=== PATIENT | male | born 1945 | race Caucasian/White ===

== ENCOUNTER → 2017-08-29 11:02 | Outpatient (CLI) | payer MEDICARE, SELFPAY ==
[2017-08-29 13:02] LABS: Absolute Lymphocyte Count 2.02 X10^3/ul (0.83-4.51); Absolute Neutrophil Count 6.2 X10^3/uL (2.0-7.7); Basophil# 0.02 X10^3/uL; Basophil% 0.2 % (0-1); Eosinophil# 0.27 X10^3/uL; Eosinophils% 2.9 % (0-5); Hematocrit 43.6 % (40-54); Hemoglobin 14.6 g/dl (13.0-16.5); Lymphocyte # 2.02 X10^3/ul (4.0); Lymphocyte % 21.7 % (19-41); Mean Corp Hgb Conc 33.5 g/gl (32-36); Mean Corpuscular Hgb 30.6 pg (27.0-32.0); Mean Corpuscular Volume 91.4 fL (80-94); Mean Platelet Vol. 11.2 fl (6.2-12.0); Monocyte# 0.75 X10^3/uL; Neutrophil # 6.23 X10^3/uL (2.7-7.7); Neutrophil % 66.9 % (47-70); Platelet Count 316 K/mm3 (150-450); RBC Distribution Width CV 13.1 % (11.6-14.6); RBC Distribution Width SD 43.5 fl (35.1-43.9); Red Blood Count 4.77 M/mm3 (4.6-6.2); White Blood Count 9.3 K/mm3 (4.4-11.0)
[2017-08-29 13:06] LABS: POSITIVE COUNT NO; POSITIVE DIFFERENTIAL NO; POSITIVE MORPHOLOGY NO
[2017-08-29 13:35] LABS: AST(SGOT) 39 U/L (15-37); Alanine Aminotransfer ALT/SGPT 64 U/L (16-61); Albumin, Serum 3.7 g/dL (3.2-5.0); Alkaline Phosphatase 53 U/L (45-117); Anion Gap 10 (5-15); BUN 10 mg/dL (7-18); BUN/Creat Ratio 12.5 RATIO (10-20); Calcium,Total 8.6 mg/dL (8.5-10.1); Chloride 102 mmol/L (98-107); EST Glomerular Filtration Rate 100 mL/min (>60); Est Glom Filt Rate - Afr Amer 121 mL/min (>60); Globulin 3.7 g/dL (2.2-4.2); Glucose 101 mg/dL (74-106); Potassium 3.4 mmol/L (3.5-5.1); Protein, Total 7.4 g/dL (6.4-8.2); Sodium Level 137 mmol/L (136-145)
== END ==
PROVIDERS: Family Provider Family Medicine; PCP Family Medicine; Visit Provider Family Medicine
DX: Z01.818 Encounter for other preprocedural examination (principal)
CPT/HCPCS: 36415; 80053; 85025

== ENCOUNTER 2017-09-24 08:03 | Inpatient (IN) | payer MEDICARE, SELFPAY ==
[2017-09-11 10:11] VITALS: BP 137/70; PULSE 69; RESP 16; TEMP 36.3; O2SAT 96; BMI 33.7
[2017-09-24] VITALS (9 sets, daily range): BP systolic 119–144; BP diastolic 64–83; PULSE 58–101; RESP 12–18; TEMP 36.4–36.8; O2SAT 93–97; BMI 33.7
[2017-09-24] MEDS: Celecoxib 200 MG Capsule 400 MG PO (08:39)
[2017-09-24] MEDS: Acetaminophen 500 MG Tablet 1000 MG PO ×3 (08:39→21:54)
[2017-09-24] MEDS: oxyCODONE HCl Cr 10 MG Tablet PO (08:39)
[2017-09-24] MEDS: Cefazolin 2 GM in 0.9% Normal Saline 100 ML IV (09:48)
--- NOTE | 2017-09-24 11:41 | PCM.OPRPT ---
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 Left knee pain status post unicompartmental knee arthroplasty. Osteoarthritis left knee Post-Operative Diagnosis: Same Surgery/Procedure Performed:: Removal of the unicompartmental knee arthroplasty and revision to total knee arthroplasty left Description of Surgical Findings:: Severe osteoarthritis lateral and patellofemoral compartments. Eburnation of bone and periarticular osteophytes. Loose femoral and tibial components helper coordinator: Blayne Mullins Type of Anesthesia:: Spinal Anesthesiologist: Brenda Moe Special Medications: TXA Specimen's removed: Bone and soft tissue and unicompartmental knee arthroplasty Estimated Blood Loss (mL): 100 Fluids Replaced: See anesthesia report Description of Procedure: Implants: Lety triathlon size 5 posterior stabilized cemented femur, 6 tibia with 10 mm medial augment and 50 x 12 mm stem and 40 mm patella all cemented with Simplex with posterior stabilized size 9 articulating surface Indications: Walter is a 72-year-old male that previously had a unicompartmental knee arthroplasty. He was doing quite well with this and developed severe pain in his knee. Preoperative bone scan did reveal loosening of the components. X-rays also reveal osteoarthritic changes noted in the lateral compartment as well as the patellofemoral joint. He has elected to have this revised to a total knee arthroplasty Procedure description: The patient was greeted in the preoperative area. The left knee was then marked with a surgical marker. Patient was then taken to or [address]. They were administered a dose of antibiotics as well as tranexamic acid. Once adequate anesthesia was obtained and airway was secured to placed in supine position on the operating room table. A well-padded tourniquet was placed on the affected extremity. Leg was then prepped and draped in the usual sterile fashion from the knee down. Ioban was used on the skin. Surgical timeout was then performed and confirmed with all present. Six-inch Esmarch was used to examine the limb and tourniquet was then inflated to 250 mmHg. A longitudinal incision was then planned and carried out in the anterior aspect of the knee incorporating his previous anterior incision. The dissection was then carried the length of the incision the extensor mechanism was identified. Standard medial parapatellar arthrotomy was then performed revealing severe eburnation of bone and periarticular osteophytes, this also revealed a unicompartmental knee arthroplasty in the medial aspect of the knee. There is complete loss of cartilage especially in the patellofemoral joint. Anterior fat pad was removed for visualization purposes and the anterior medial aspect of the tibia was skeletonized for exposure to the knee. The knee was then flexed the patella was inverted. Opening reamer was then used in the femur approximately 1 cm anterior to the attachment of the PCL. The intramedullary valgus wand was then placed in the femur set at 5? of valgus. The distal femoral cutting jig was then applied to the femur with anticipated resection of approximately 10 mm. This was then made with a oscillating saw. This cut could not completely be made because of the femoral component. At this time flexible osteotomes were then used to break up the bone cement interface and the femoral component was removed with essentially no bone loss. The sizing guide was then placed referencing off the posterior condyles and also reference off the epicondylar axis. I also reference off Whitesides line in order to accommodate for the fact that the medial posterior condyle was absent from the previous surgery. This was measured and the appropriate size 4-in-1 cutting jig was then applied to the distal femur. Anterior posterior cuts were made followed by the anterior and posterior chamfer cuts. These bony pieces and fragments were removed and placed on the back table. Posterior retractor was then utilized and the tibia was subluxed anteriorly. Extramedullary tibial alignment jig was then applied to the tibia referencing off the medial one third of the tibial tubercle the anterior tibial spine the middle aspect of the tibiotalar joint. Also reference off patient's [place] slope. The tibial cutting jig was then pinned with anticipated resection of 9 mm off of the lateral tibial condyle. Assessment of the cut medially would be through the tibial component therefore I did remove the cutting jig leaving the pins and flexible osteotomes were then used to remove the tibial component. Again very little bone loss was noted as the tibial component came off quite easily. The cutting jig was then reapplied. This cut was made with the oscillating saw. Because of the previous tibial component I anticipate placing a medial wedge. There is approximately 7 mm of absent bone because of the component therefore I did do a resurfacing cut of the medial aspect of the tibia with anticipation of a 10 mm augment. This was also done through the cutting jig. Once this was complete a laminar retail wireless sales consultant was utilized in both medial lateral meniscus were removed and a posterior capsular osteophytes were also removed. Posterior capsule release was performed in the posterior capsule as well as the geniculate arteries are treated with the aqua Jenae. The tibia was incised and the appropriate sized tibial tray was then pinned with a 10 mm augment on the medial aspect.. The femoral box cutting jig was then applied to the femur and the box was prepared removing a portion of the intercondylar notch. The femoral trial was then placed and the knee was trialed. Full flexion-extension were easily achieved. The knee seemed to balance quite nicely. Any remaining osteophytes were removed at this time. Once this was complete the patella was everted and the [employer] patella reaming device was then utilized the patella was then placed in the appropriate jig and reamer was then used to remove approximately 9 mm of the undersurface of the patella. A soft tissue remaining was in the way was removed and patella trial was then placed listed maintain excellent tracking using the no thumbs technique. The tibial tray at this point was drilled in order to accommodate the 12 mm stem there was also punched to accommodate the fins of the final implant. At this point cement was mixed on the back table. The trial components were removed and the knee was copiously irrigated. Did use a cocktail of injection for postoperative pain control. The final components were then cemented in the standard fashion and excess cement was removed with cement removal tools and patellar clamp is placed in the patella. As the cement had cured in full extension tourniquet was deflated and hemostasis was perfect with Bovie cautery as well as the aqua Manus. Needle is once again trialed with different size polyethylenes to ensure the full range of motion was achieved as well as excellent balancing ligamentously was achieved. At this point the knee was copiously irrigated. Final implant was then inserted locking mechanism was engaged and confirmed to be locked. The arthrotomy was then closed with #1 Vicryl aggravate type fashion interrupted. Subcutaneous tissue was closed with 0 Vicryl and surgical jaimie were placed in the skin. A occlusive silver impregnated dressing was then applied followed by well-padded sterile dressing secured with an Clarence wrap. The patient was taken to the PACU in stable condition. No complications known at this time. Postoperatively we will maintain standard total knee postoperative protocol. The use of the physician high school assistant principal was integral during this procedure. They assisted with positioning placement of the tourniquet retracting closure and placement of the dressing. The procedure would have been much more difficult without their expertise and assistance - Complications none known - Admit VTE Documentation VTE Present on Admission: Yes VTE Mechan Device Prophylaxis: SCD's, Thigh High SAM Michaele VTE Pharm Prophylaxis ordered?: Yes
[2017-09-24] MEDS: Famotidine 20 MG Tablet 40 MG PO (12:14)
[2017-09-24] MEDS: Mag Hydrox/Al Hydrox/Simeth 30 ML UDC PO (12:15)
--- NOTE | 2017-09-24 12:15 | RAD_ITS ---
STUDY: X-RAY - LEFT KNEE REASON FOR EXAM: Male, 72 years old. Postop from replacement surgery TECHNIQUE: 2 view(s) of the knee. COMPARISON: None. FINDINGS: Patient is status post replacement of left knee joint. Components demonstrate anatomic alignment. No plain film evidence of postoperative complication. Normal postoperative soft tissue swelling and subcutaneous emphysema. RAD/Knee 1 or 2 Views IMPRESSION: Replaced left knee joint demonstrates anatomic alignment. No plain film evidence of postoperative complication Electronically Signed: Rahul Morton MD at 12:32 EDT , Service support ,
[2017-09-24] MEDS: Lactated Ringers 1,000 ML 125 ML IV ×2 (12:51→19:17)
[2017-09-24] MEDS: oxyCODONE 5 MG Tablet PO (14:40)
[2017-09-24] MEDS: Cefazolin 1 GM/50 ML BAG IV (17:34)
[2017-09-24] MEDS: Aspirin 325 MG Tablet PO (17:35)
[2017-09-24] MEDS: Celecoxib 200 MG Capsule PO (21:54)
[2017-09-24] MEDS: morphine SR 15 MG Tablet PO (21:54)
[2017-09-24] MEDS: Senna/Docusate Sodium 1 Tablet 2 TABLET PO (21:54)
[2017-09-25] MEDS: Cefazolin 1 GM/50 ML BAG IV (01:50)
[2017-09-25 01:54] VITALS: BP 124/75; PULSE 73; RESP 16; TEMP 37.1; O2SAT 96
[2017-09-25] MEDS: Acetaminophen 500 MG Tablet 1000 MG PO ×3 (06:09→21:00)
[2017-09-25] MEDS: 0.9% NaCl Peripheral Flush Adult/Peds IV (06:55)
--- NOTE | 2017-09-25 07:43 | PCM.PN.ORT ---
Subjective: Walter is doing fairly well. He has pain as expected. This is currently controlled with the current regimen of pain medication. He is currently sitting at bedside waiting for breakfast. Objective: Patient is neurovascularly intact. Dressing is clean and dry. There is no calf pain elicited. - Physical Exam Vital Signs Temp Pulse Resp BP Pulse Ox 98.7 F 73 16 124/75 H 96 09/25/17 01:54 09/25/17 01:54 09/25/17 01:54 09/25/17 01:54 09/25/17 01:54 Oxygen Delivery Method Room Air Weight: 235 lb Body Mass Index (BMI) 33.7 Intake and Output for Last 24 Hours 09/23/17 09/24/17 09/25/17 23:59 23:59 23:59 Intake Total 3183 / 3183 631 / 631 Output Total 700 / 700 200 / 200 Balance 2483 / 2483 431 / 431 Medical Necessity - Tobacco Use Smoking Status: Former smoker Assessment/Plan Postop day 1 removal of unicompartmental knee arthroplasty with revision to total knee replacement left knee Walter is doing fairly well. Given the extensive nature of the surgery I would recommend the patient work with therapy today continue with pain control and anticoagulation. Anticipate patient being discharged home tomorrow
[2017-09-25 08:35] VITALS: BP 133/72; PULSE 79; RESP 16; TEMP 36.8; O2SAT 95
[2017-09-25] MEDS: oxyCODONE 5 MG Tablet PO ×2 (08:40→13:39)
[2017-09-25] MEDS: Celecoxib 200 MG Capsule PO ×2 (08:42→21:00)
[2017-09-25] MEDS: Aspirin 325 MG Tablet PO ×2 (08:42→17:10)
[2017-09-25] MEDS: Senna/Docusate Sodium 1 Tablet 2 TABLET PO ×2 (08:43→21:00)
[2017-09-25] MEDS: Losartan Potassium 100 MG Tablet PO (08:43)
[2017-09-25] MEDS: hydroCHLOROthiazide 25 MG Tablet PO (08:43)
[2017-09-25] MEDS: Famotidine 20 MG Tablet PO (08:43)
[2017-09-25] MEDS: morphine SR 15 MG Tablet PO ×2 (10:37→21:00)
--- NOTE | 2017-09-25 11:56 | CASEMGMT ---
RN OLY Face to Face with patient for initial transition planning/care coordination assessment. RN CM introduced self and role at [facility]. Patient lying in bed, alert and oriented, family at bedside. Patient willing to participate in assessment and is able to answer all questions appropriately. Care providers, pharmacy, and demographics verified. See link attached. Patient wishes to discharge home and is setup with [facility] for outpatient therapy and family providing transportation. Patient states he has no further needs or concerns at this time. CM to follow for discharge planning needs that may arise. Disposition Plan: Patient to discharge home with outpatient therapy, family support, and follow-up plans in place.
[2017-09-25 14:50] VITALS: BP 130/70; PULSE 84; RESP 16; TEMP 36.8; O2SAT 95
[2017-09-25 19:48] VITALS: BP 130/68; PULSE 83; RESP 16; TEMP 36.4; O2SAT 95
[2017-09-26 04:54] VITALS: BP 139/76; PULSE 79; RESP 18; TEMP 37.1; O2SAT 98
[2017-09-26] MEDS: oxyCODONE 5 MG Tablet PO (04:58)
[2017-09-26] MEDS: Acetaminophen 500 MG Tablet 1000 MG PO ×2 (04:58→13:17)
[2017-09-26 07:54] VITALS: BP 128/67; PULSE 79; RESP 16; TEMP 36.8; O2SAT 95
[2017-09-26] MEDS: Aspirin 325 MG Tablet PO (08:03)
[2017-09-26] MEDS: Famotidine 20 MG Tablet PO (08:04)
[2017-09-26] MEDS: Senna/Docusate Sodium 1 Tablet 2 TABLET PO (08:04)
[2017-09-26] MEDS: Celecoxib 200 MG Capsule PO (08:04)
[2017-09-26 10:04] VITALS: BP 136/65; PULSE 77
[2017-09-26] MEDS: Losartan Potassium 100 MG Tablet PO (10:05)
[2017-09-26] MEDS: hydroCHLOROthiazide 25 MG Tablet PO (10:05)
[2017-09-26] MEDS: morphine SR 15 MG Tablet PO (10:05)
--- NOTE | 2017-09-26 11:55 | PCM.DC.ORTHO ---
Discharge Diet: No Restrictions Discharge Activity: May Not Drive, May Shower - if occlusive dressing is sealed Ice area for (Minutes): 20 Weight Bearing Status: Weight bearing as tolerated - with walker Keep extremity elevated above heart level: Left Leg Call your doctor if your incision/area has: Continuous Slow Oozing, Sudden Increased Bleeding, Increased Pain/ Swelling, Increased Redness, Foul Smelling Discharge Call your doctor if you observe: Fever of 101 or Higher, Coldness, Increased Pain, Numbness or Tingling, Change in Color Remove Dressing in (days):: 7 - open to air if no drainage Cleanse incision/area with: Soap & Water - if no drainage after dressing removed Allergies/Adverse Reactions: Allergies atorvastatin calcium [From Lipitor] Adverse Reaction (Verified 09/11/17 09:54) Pain in joints rosuvastatin [From Crestor] Adverse Reaction (Verified 09/11/17 09:54) Pain in joints Medications to take at Discharge Losartan/Hydrochlorothiazide [Hyzaar 100-25 Tablet] 1 tab PO DAILY 04/07/13 Ascorbic Acid [Vitamin C] 500 mg PO DAILY 09/11/17 Psyllium Husk (with Sugar) [Metamucil Powder] 575 gm PO BID 09/11/17 Acetaminophen [Tylenol] 1,000 mg PO Q8 tablet 09/26/17 Aspirin 325 mg PO BIDCM tablet 09/26/17 Oxycodone [Oxyir] 5 - 10 mg PO Q4H PRN PRN 7 Days #56 tablet 09/26/17 morphine SR tablet [Ms Contin] 15 mg PO BID 7 Days #14 tablet 09/26/17 The following prescriptions were given: Oxycodone [Oxyir] 5 - 10 mg PO Q4H PRN PRN 7 Days #56 tablet PRN Reason: Mod-Severe Pain (4-10/10) morphine SR tablet [Ms Contin] 15 mg PO BID 7 Days #14 tablet Please Follow Up With: Blayne Mullins PA-C When: as scheduled
[2017-09-26 11:59] VITALS: BP 132/77; PULSE 70; RESP 18; TEMP 36.9; O2SAT 97
--- NOTE | 2017-09-26 12:07 | PCM.DC.BLA ---
Discharge Summary Date of Admission: 09/24/17 Date of Discharge: 09/26/17 Summary: Walter had a removal of his unicompartmental knee arthroplasty and conversion to a total knee replacement on September 24, 2017. Once he was stabilized in the recovery room he was then transferred to the medical surgical floor where he was monitored per protocol. He was placed on both chemical and mechanical DVT prophylaxis. He was also placed on both oral and IV narcotics for pain control. He was evaluated by physical therapy and occupational therapy in order to maximize his functional dependence. Patient did quite well and on September 18, 2017 is being discharged to home. Please see discharge instructions.
== END 2017-09-26 14:24 | disposition home or self-care (01) | DRG 468 ==
LOC: MS3 08:04
PROVIDERS: Admitting Provider Orthopaedic Surgery; Family Provider Family Medicine; PCP Family Medicine; Visit Provider Orthopaedic Surgery
PROC: 0SPD0JZ Removal of Synthetic Substitute from Left Knee Joint, Open Approach (ICD-10-PCS; CPT 27447; principal; 2017-09-24 09:50)
DX: T84.033A Mechanical loosening of internal left knee prosthetic joint, initial encounter (principal); I10 Essential (primary) hypertension; M17.12 Unilateral primary osteoarthritis, left knee; Z96.652 Presence of left artificial knee joint; Z87.891 Personal history of nicotine dependence; Z23 Encounter for immunization
CPT/HCPCS: 73560; 87081; 97110; 97116; 97162; 97165; 97530; 97535; J7120; 90686; A4216

== ENCOUNTER → 2017-11-22 08:35 | Outpatient (CLI) | payer MEDICARE, SELFPAY ==
[2017-11-22 10:14] LABS: Absolute Lymphocyte Count 2.38 X10^3/ul (0.83-4.51); Absolute Neutrophil Count 6.2 X10^3/uL (2.0-7.7); Basophil# 0.03 X10^3/uL; Basophil% 0.3 % (0-1); Eosinophil# 0.35 X10^3/uL; Eosinophils% 3.6 % (0-5); Hematocrit 40.3 % (40-54); Hemoglobin 13.4 g/dl (13.0-16.5); Lymphocyte # 2.38 X10^3/ul (4.0); Lymphocyte % 24.4 % (19-41); Mean Corp Hgb Conc 33.3 g/gl (32-36); Mean Corpuscular Hgb 30.4 pg (27.0-32.0); Mean Corpuscular Volume 91.4 fL (80-94); Mean Platelet Vol. 10.9 fl (6.2-12.0); Monocyte# 0.77 X10^3/uL; Monocyte% 7.9 % (0-10); Neutrophil % 63.6 % (47-70); Platelet Count 347 K/mm3 (150-450); RBC Distribution Width CV 13.1 % (11.6-14.6); RBC Distribution Width SD 43.4 fl (35.1-43.9); Red Blood Count 4.41 M/mm3 (4.6-6.2); White Blood Count 9.8 K/mm3 (4.4-11.0)
[2017-11-22 10:15] LABS: POSITIVE COUNT NO; POSITIVE DIFFERENTIAL NO; POSITIVE MORPHOLOGY NO
[2017-11-22 10:49] LABS: AST(SGOT) 24 U/L (15-37); Alanine Aminotransfer ALT/SGPT 40 U/L (16-61); Albumin, Serum 3.6 g/dL (3.2-5.0); Alkaline Phosphatase 62 U/L (45-117); Anion Gap 8 (5-15); BUN 13 mg/dL (7-18); BUN/Creat Ratio 16.2 RATIO (10-20); Calcium,Total 8.8 mg/dL (8.5-10.1); Chloride 103 mmol/L (98-107); EST Glomerular Filtration Rate 100 mL/min (>60); Est Glom Filt Rate - Afr Amer 121 mL/min (>60); Globulin 3.7 g/dL (2.2-4.2); Glucose 109 mg/dL (74-106); Potassium 3.6 mmol/L (3.5-5.1); Protein, Total 7.3 g/dL (6.4-8.2); Sodium Level 137 mmol/L (136-145); Thyroid Stim Hormone (TSH) 2.15 uIU/mL (0.358-3.74)
== END ==
PROVIDERS: Family Provider Family Medicine; PCP Family Medicine; Visit Provider Family Medicine
DX: R53.83 Other fatigue (principal)
CPT/HCPCS: 36415; 80053; 84443; 85025

== ENCOUNTER → 2017-12-19 09:11 | Outpatient (CLI) | payer MEDICARE, SELFPAY ==
--- NOTE | 2017-12-19 09:15 | STEWCON_ITS ---
Reason For Study: Fatigue Stress Results Protocol: Reese Protocol Maximum Predicted HR: 146 bpm Target HR: 124 bpm% Max imum Predicted HR: 87 % DurationHeart Rate Stage (mm:ss) (bpm) BPCom ment Baseline 65 140/82 Definity 0.4 ML Used; No Chest Pain Reese Protocol Stage I 3:00 11 0 178/80No Chest Pain; Mild Dyspnea Reese Protocol Stage II 3:00 12 6 194/80No Chest Pain; Moderate Dyspnea Reese Protocol Stage III 0:01 12 7 / No Chest Pain; Moderate Dyspnea Recovery 84 146/78 No Chest Pain Stress Duration: 6:01 mm:ss Maximum Stress HR: 127 bpmM ETS: 7 Baseline Echocardiogram Findings The estimated ejection fraction is 65 %. Stress Echo Wall motion Data Resting WMIntermediate WMStress WM Resting Wall Motion Wall Motion Stress No regional wall motion No regional wall motion abnormalities noted. abnormalities noted. EKG Data Normal intervals are noted. The baseline ECG displays normal sinus rhythm. The patient exercised according to the regular Reese protocol for a total duration of 6:01. The maximum heart rate attained was 133 beats per minute. This was 91% of maximum predicted heart rate. The patient exercised into stage 3 of the Reese protocol. During stress, there were no ST or T wave changes noted to suggest ischemia. No clinical angina was noted. Interpretation Summary The estimated ejection fraction is 65 %. Normal, adequate, treadmill echocardiogram. Negative for ischemia by EKG and echocardiographic anterior. No anginal symptoms noted. Rare PAC noted. Appropriate hypertensive blood pressure response to exercise. Final LVEF of 75%. Test terminated due to dyspnea. Ordering Physician: Misa Cabrera Referring Physician: Ramirez Wu MD Performed By: Jenna Angulo RDCS, RVT
== END ==
PROVIDERS: Family Provider Family Medicine; PCP Family Medicine; Visit Provider Family Medicine
DX: R53.83 Other fatigue (principal)
CPT/HCPCS: 93017; 93350; Q9957; A4216; C8928

== ENCOUNTER → 2019-04-15 | Outpatient (CLI) | payer MEDICARE, SELFPAY ==
[2017-09-24 13:25] VITALS: BMI 33.7
[2019-04-15 12:47] LABS: BUN 13 mg/dL (7-18); BUN/Creat Ratio 13.8 RATIO (10-20); Calcium,Total 8.8 mg/dL (8.5-10.1); Creatinine, Serum 0.94 mg/dL (0.70-1.30); EST Glomerular Filtration Rate 83 mL/min (>60); Est Glom Filt Rate - Afr Amer 100 mL/min (>60); Glucose 189 mg/dL (74-106); Potassium 3.6 mmol/L (3.5-5.1); Sodium Level 134 mmol/L (136-145)
[2019-04-15 12:48] LABS: Anion Gap 6 (5-15); Chloride 102 mmol/L (98-107)
== END | disposition home or self-care (01) ==
LOC: MFPLAB 10:08
PROVIDERS: Family Provider Family Medicine; PCP Family Medicine; Referring Provider Family Medicine; Visit Provider Family Medicine
DX: I10 Essential (primary) hypertension (principal)
CPT/HCPCS: 36415; 80048

== ENCOUNTER → 2019-11-26 10:35 | Outpatient (CLI) | payer MEDICARE, SELFPAY ==
[2017-09-24 13:25] VITALS: BMI 33.7
[2019-11-26 13:13] LABS: Anion Gap 6 (5-15); BUN 12 mg/dL (7-18); Calcium,Total 8.9 mg/dL (8.5-10.1); Chloride 104 mmol/L (98-107); Creatinine, Serum 0.92 mg/dL (0.70-1.30); EST Glomerular Filtration Rate 85 mL/min (>60); Est Glom Filt Rate - Afr Amer 102 mL/min (>60); Glucose 119 mg/dL (74-106); Potassium 3.9 mmol/L (3.5-5.1); Sodium Level 139 mmol/L (136-145)
== END ==
PROVIDERS: PCP Family Medicine; Referring Provider Family Medicine; Visit Provider Family Medicine
DX: I10 Essential (primary) hypertension (principal)
CPT/HCPCS: 36415; 80048

== ENCOUNTER → 2020-08-31 14:35 | Outpatient (CLI) | payer MEDICARE, SELFPAY ==
[2017-09-24 13:25] VITALS: BMI 33.7
[2020-08-31 18:07] LABS: Hemoglobin A1c 5.7 % (3.8-5.6)
[2020-08-31 18:10] LABS: AST(SGOT) 24 U/L (15-37); Alanine Aminotransfer ALT/SGPT 33 U/L (16-61); Albumin, Serum 3.6 g/dL (3.2-5.0); Alkaline Phosphatase 56 U/L (45-117); Anion Gap 9 (5-15); BUN 13 mg/dL (7-18); BUN/Creat Ratio 15.3 RATIO (10-20); Bilirubin, Direct 0.09 mg/dL (0.00-0.30); Chloride 103 mmol/L (98-107); Cholesterol 302 mg/dL (200); Creatinine, Serum 0.85 mg/dL (0.70-1.30); EST Glomerular Filtration Rate 93 mL/min (>60); Est Glom Filt Rate - Afr Amer 113 mL/min (>60); Globulin 3.9 g/dL (2.2-4.2); Glucose 87 mg/dL (74-106); High Density Lipoprotein 58 mg/dL; Potassium 3.6 mmol/L (3.5-5.1); Protein, Total 7.5 g/dL (6.4-8.2); Sodium Level 137 mmol/L (136-145); Triglycerides 164 mg/dL; Very Low Density Lipoprotein 33 mg/dL (5-40)
[2020-08-31 18:19] LABS: Microalbumin,Random Urine 44.7 mg/L (NO RANGE EST.); Microalbumin:Creatinine Ratio 117.3 mg/g CRE (<30 mg/g CRE)
== END ==
PROVIDERS: PCP Family Medicine; Referring Provider Family Medicine; Visit Provider Family Medicine
DX: E11.9 Type 2 diabetes mellitus without complications (principal); I10 Essential (primary) hypertension; E78.00 Pure hypercholesterolemia, unspecified
CPT/HCPCS: 36415; 80048; 80061; 80076; 82043; 82570; 83036

== ENCOUNTER → 2021-03-04 14:35 | Outpatient (CLI) | payer MEDICARE, SELFPAY ==
[2021-03-04 17:44] LABS: Anion Gap 7 (5-15); BUN 12 mg/dL (7-18); BUN/Creat Ratio 15.3 RATIO (10-20); Calcium,Total 9.2 mg/dL (8.5-10.1); Chloride 103 mmol/L (98-107); Creatinine, Serum 0.79 mg/dL (0.70-1.30); EST Glomerular Filtration Rate 102 mL/min (>60); Est Glom Filt Rate - Afr Amer 123 mL/min (>60); Glucose 114 mg/dL (74-106); Potassium 3.5 mmol/L (3.5-5.1); Sodium Level 136 mmol/L (136-145)
== END ==
PROVIDERS: PCP Family Medicine; Referring Provider Family Medicine; Visit Provider Family Medicine
DX: E11.9 Type 2 diabetes mellitus without complications (principal); I10 Essential (primary) hypertension
CPT/HCPCS: 36415; 80048

== ENCOUNTER 2021-09-02 11:18 | Outpatient (CLI) | payer MEDICARE, SELFPAY ==
[2021-09-02 15:14] LABS: Microalbumin,Random Urine 69.5 mg/L (NO RANGE EST.); Microalbumin:Creatinine Ratio 66.2 mg/g CRE (<30 mg/g CRE)
[2021-09-02 15:28] LABS: AST(SGOT) 18 U/L (15-37); Alanine Aminotransfer ALT/SGPT 24 U/L (16-61); Anion Gap 5 (5-15); BUN 13 mg/dL (7-18); BUN/Creat Ratio 14.1 RATIO (10-20); Calcium,Total 9.9 mg/dL (8.5-10.1); Chloride 105 mmol/L (98-107); Cholesterol 265 mg/dL (200); Creatinine, Serum 0.92 mg/dL (0.70-1.30); EST Glomerular Filtration Rate 84 mL/min (>60); Est Glom Filt Rate - Afr Amer 102 mL/min (>60); Glucose 91 mg/dL (74-106); High Density Lipoprotein 59 mg/dL; Sodium Level 138 mmol/L (136-145); Triglycerides 115 mg/dL; Very Low Density Lipoprotein 23 mg/dL (5-40)
== END 2021-09-02 23:59 | disposition home or self-care (01) ==
LOC: MFPLAB 11:20
PROVIDERS: PCP Family Medicine; Referring Provider Family Medicine; Visit Provider Family Medicine
DX: E11.9 Type 2 diabetes mellitus without complications (principal); E78.00 Pure hypercholesterolemia, unspecified
CPT/HCPCS: 36415; 80048; 80061; 82043; 82570; 84450; 84460

== ENCOUNTER → 2022-09-05 | Outpatient (CLI) | payer MEDICARE, SELFPAY ==
[2022-09-05 18:04] LABS: Hemoglobin A1c 6.2 % (3.8-5.6)
[2022-09-05 18:11] LABS: Microalbumin,Random Urine 89.3 mg/L (NO RANGE EST.); Microalbumin:Creatinine Ratio 152.1 mg/g CRE (<30 mg/g CRE)
[2022-09-05 18:16] LABS: AST(SGOT) 31 U/L (15-37); Alanine Aminotransfer ALT/SGPT 35 U/L (16-61); Alkaline Phosphatase 49 U/L (45-117); Anion Gap 8 (5-15); BUN 12 mg/dL (7-18); Calcium,Total 9.1 mg/dL (8.5-10.1); Chloride 103 mmol/L (98-107); Cholesterol 334 mg/dL (200); Creatinine, Serum 0.92 mg/dL (0.70-1.30); EST Glomerular Filtration Rate 84 mL/min (>60); Est Glom Filt Rate - Afr Amer 102 mL/min (>60); Globulin 3.7 g/dL (2.2-4.2); Glucose 87 mg/dL (74-106); High Density Lipoprotein 58 mg/dL; Potassium 3.7 mmol/L (3.5-5.1); Protein, Total 7.7 g/dL (6.4-8.2); Sodium Level 138 mmol/L (136-145); Triglycerides 108 mg/dL; Very Low Density Lipoprotein 22 mg/dL (5-40)
== END | disposition home or self-care (01) ==
PROVIDERS: PCP Family Medicine; Referring Provider Family Medicine; Visit Provider Family Medicine
DX: E11.9 Type 2 diabetes mellitus without complications (principal)
CPT/HCPCS: 36415; 80048; 80061; 80076; 82043; 82570; 83036

== ENCOUNTER → 2023-03-26 | Outpatient (CLI) | payer MEDICARE, SELFPAY ==
[2023-03-26 12:06] LABS: Erythrocyte Sedimentation Rate 8 mm/hr (0-20)
[2023-03-26 12:47] LABS: PSA,Total - Annual Screen 0.56 ng/mL (0.00-4.00)
== END | disposition home or self-care (01) ==
LOC: MTLAB 10:02
PROVIDERS: PCP Family Medicine; Referring Provider Family Medicine; Visit Provider Family Medicine
DX: M89.8X9 Other specified disorders of bone, unspecified site (principal); Z12.5 Encounter for screening for malignant neoplasm of prostate
CPT/HCPCS: 36415; 84153; 85652; G0103

== ENCOUNTER → 2023-09-28 | Outpatient (CLI) | payer MEDICARE, SELFPAY ==
[2023-09-28 17:34] LABS: Protein, Urine (Random) 13.5 mg/dL (<11.9); Protein:Creat Ratio 211 mg/g CRE (0-200)
[2023-09-28 18:06] LABS: AST(SGOT) 29 U/L (15-37); Alanine Aminotransfer ALT/SGPT 39 U/L (16-61); Anion Gap 7 (5-15); BUN 16 mg/dL (7-18); BUN/Creat Ratio 16.6 RATIO (10-20); Calcium,Total 9.5 mg/dL (8.5-10.1); Chloride 102 mmol/L (98-107); Cholesterol 226 mg/dL (200); Creatinine, Serum 0.96 mg/dL (0.70-1.30); EST Glomerular Filtration Rate 80 mL/min (>60); Est Glom Filt Rate - Afr Amer 97 mL/min (>60); Glucose 101 mg/dL (74-106); High Density Lipoprotein 57 mg/dL; Potassium 4.4 mmol/L (3.5-5.1); Sodium Level 138 mmol/L (136-145); Triglycerides 191 mg/dL; Very Low Density Lipoprotein 38 mg/dL (5-40)
== END | disposition home or self-care (01) ==
LOC: MTLAB 15:42
PROVIDERS: PCP Family Medicine; Referring Provider Family Medicine; Visit Provider Family Medicine
DX: E11.59 Type 2 diabetes mellitus with other circulatory complications (principal)
CPT/HCPCS: 36415; 80048; 80061; 82570; 84156; 84450; 84460

== ENCOUNTER 2024-02-22 01:04 | Emergency (ER) | payer MEDICARE, SELFPAY ==
[2024-02-22 01:04] VITALS: BP 148/64; PULSE 71; RESP 18; TEMP 36.2; O2SAT 98; BMI 31.6
--- NOTE | 2024-02-22 01:30 | CT_ITS ---
EXAM: CT CHEST WITHOUT INTRAVENOUS CONTRAST CLINICAL INDICATION: posterior right rib injury TECHNIQUE: Helically acquired images were obtained of the chest without intravenous contrast. CTDIvol = ( 19.22 ) mGy, DLP = ( 894.24 ) mGycm This CT exam was performed using one or more of the following dose reduction techniques: automated exposure control, adjustment of the mA and/or kV according to patient size, and/or use of iterative reconstruction technique. COMPARISON: No relevant prior studies available. FINDINGS: LUNGS AND PLEURAL SPACES: Dependent atelectasis at the posterior lower lobes. No consolidation. No mass. No pleural effusion or pneumothorax. HEART: Unremarkable. Heart size is normal. No pericardial effusion. No significant coronary artery calcifications. MEDIASTINUM: Fluid-filled patulous esophagus. Evidence of old granulomatous disease with multiple pulmonary calcified nodules and multiple mediastinal/hilar calcifications. Calcified hilar mediastinal lymph nodes. No hiatal hernia. THYROID: Unremarkable. No thyroid lesions. BONES/JOINTS: Unremarkable. No suspicious lytic or blastic abnormality. VASCULATURE: Unremarkable. Thoracic aorta is non-dilated. SPLEEN: Multiple very small granulomas of the spleen. CT/Chest without Contrast IMPRESSION: No pneumonia or other acute disease. Old granulomatous disease. Patulous esophagus. Correlate for any prior history of esophageal surgery. Electronically Signed: Monroe Latham MD at 3:46 EDT ,
--- NOTE | 2024-02-22 01:30 | CT_ITS ---
STUDY: CT CERVICAL SPINE WITHOUT CONTRAST REASON FOR EXAM: Male, 78 years old. Posttraumatic neck pain TECHNIQUE: Transaxial CT imaging of the cervical spine was performed without administration of intravenous contrast material, followed by coronal and sagittal reformatting. Individualized dose optimization techniques were used for this CT. COMPARISON: No relevant priors. FINDINGS: The alignment of the cervical spine demonstrates reversal of the normal lordosis of the upper cervical spine. No focal listhesis or significant scoliosis. Booker cervical junction is unremarkable. There is moderate degenerative change of the atlantoaxial axial articulation. Facet joints are in in normal alignment with mild to moderate diffuse degenerative change. There is no vertebral body fracture. There is moderate to severe degenerative change of the intervertebral disc spaces throughout the cervical spine. There is moderate to severe degenerative change of the uncovertebral joints from C3 through C7. C2-C3: Mild right neural foraminal canal narrowing. C3-C4: Moderate right and mild left neural foraminal canal narrowing.. C4-C5: Unremarkable. C5-C6: Mild to moderate right and moderate left neural foraminal canal narrowing. Mild spinal canal stenosis.. C6-C7: Mild to moderate bilateral neural foraminal canal narrowing. Mild spinal canal stenosis.. C7-T1: Unremarkable. Prevertebral soft tissues are unremarkable. Capacious food debris filled proximal esophagus noted. Visualized lung apices are clear. CT/Spine Cervical without Contras IMPRESSION: 1. No acute abnormality of the cervical spine 2. 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 3. Capacious, food debris filled proximal esophagus. Electronically Signed: Henok Farnsworth MD at 2:56 EDT ,
--- NOTE | 2024-02-22 01:30 | CT_ITS ---
We are attempting to reach an attending provider to discuss findings. An addendum with communication details will be sent when the communication is complete. STUDY: CT BRAIN WITHOUT CONTRAST REASON FOR EXAM: Male, 78 years old. Posttraumatic headache RADIATION DOSAGE (If Supplied By Facility): CTDIvol = ( 44.99 ) mGy, DLP = ( 829.85 ) mGycm TECHNIQUE: Transaxial CT imaging of the brain was performed without administration of intravenous contrast material. Individualized dose optimization techniques were used for this CT. COMPARISON: No relevant priors. FINDINGS: Soft tissue swelling is noted overlying the posterior mid occipital region. No underlying skull fracture. There is mild cerebral atrophy with widening of the extra-axial spaces and ventricular dilatation. There is mild bilateral periventricular and subcortical white matter hypoattenuation which is symmetric in distribution. Normal basal ganglia and thalami. Normal brainstem. Normal cerebellum. There is a cortical contusions involving the left parafalcine medial frontal lobe. There is a small associated focus of subdural blood along the left anterior falx.. There are no findings of an acute ischemic infarction. Normal visualized paranasal sinuses. CT/Brain/Head without Contrast IMPRESSION: 1. Soft tissue swelling of the posterior mid occipital region with no underlying skull fracture but with small left medial frontal lobe cortical contusion and small left parafalcine subdural hemorrhage. 2. Mild bilateral periventricular and subcortical white matter chronic small vessel disease with age appropriate cerebral atrophy. Electronically Signed: Henok Farnsworth MD at 2:41 EDT ,
--- NOTE | 2024-02-22 01:32 | EX.ED.GENINJ ---
HPI History of Present Illness Chief Complaint: Head Injury Informant: patient and spouse/S.O. Narrative Narrative: 78-year-old male presenting to the emergency room with head injury and rib pain following a fall. Patient took the dog out tonight he tripped and fell striking his head on the blacktop. He notes skin tear and abrasions to the posterior scalp headache neck pain and posterior right mid rib pain. No loss of consciousness. He denies being on a blood thinner unsure of last tetanus shot. Denies any arm or leg symptoms. He states as the time is gone on he is developing a worsening headache. [facility] Medical History Hyperlipemia Home Medications ?Medication ?Instructions ?Recorded ?Last Taken ?Type losartan 100 1 tab PO DAILY BP 04/07/13 04/07/13 05:30 History mg-hydrochlorothiazide 25 mg tablet (Hyzaar) ascorbic acid (vitamin C) 500 mg 500 mg PO DAILY SUPPLEMENT 09/11/17 Unknown History tablet,extended release (Vitamin C ER) psyllium husk (with sugar) 3.4 575 g PO BID BOWELS 09/11/17 Unknown History gram/12 gram oral powder (Metamucil (with sugar)) acetaminophen 500 mg tablet 1,000 mg (2 x 500 mg) PO Q8 09/26/17 Unknown Rx morphine 15 mg tablet,extended 15 mg PO BID 7 days ##14 09/26/17 Unknown Rx release oxycodone 5 mg tablet 5 - 10 mg (1 - 2 x 5 mg) PO Q4H 09/26/17 Unknown Rx PRN PRN Mod-Severe Pain (4-10/10) 7 days ##56 rosuvastatin 10 mg tablet 10 mg PO QHS 02/22/24 Unknown History Allergy/AdvReac Type Severity Reaction Status Date / Time atorvastatin calcium (From AdvReac Pain in Verified 02/22/24 01:04 Lipitor) joints rosuvastatin (From Crestor) AdvReac Pain in Verified 02/22/24 01:04 joints Social History Smoking Status: Former smoker ROS ROS ED Constitutional Constitutional ED: Denies chills, fever(s) or weight loss Eyes Eyes: Denies change in vision or diplopia ENT ENT ED: Denies ear pain, rhinorrhea or sore throat Cardiovascular Cardiovascular: Denies chest pain, orthopnea, palpitations or racing heartbeat Respiratory/Chest Respiratory/Chest: Denies cough, dyspnea or orthopnea Gastrointestinal Gastrointestinal: Denies abdominal pain, diarrhea, nausea or vomiting Genitourinary Genitourinary ED: Denies dysuria, hematuria or urinary frequency Musculoskeletal Musculoskeletal: Reports back pain and neck pain; Denies arthralgias or myalgias Integumentary Reports Abrasions; Denies abscess or rash Neurologic Neurologic: Reports headache(s); Denies paresthesias or weakness Psychiatric Psychiatric: Denies anxiety, depression, suicidal ideation or suicidal thoughts Endocrine Endocrinology: Denies polydipsia, polyphagia or polyuria Allergic/Immunologic Allergic/Immunologic ED: Denies mouth swelling, tongue swelling or urticaria EXAM Physical Exam Const Vital Signs: 02/22/24 01:04 02/22/24 01:08 02/22/24 02:32 Temperature 97.2 F L Temperature Source Temporal Pulse Rate 71 74 Respiratory Rate 18 18 Respiratory Effort Normal Respiratory Depth Normal Respiratory Pattern Normal Blood Pressure 148/64 H 165/83 H Blood Pressure Mean 92 110 Pulse Ox 98 95 Oxygen Delivery Method Room Air Room Air Room Air Positive well nourished and well developed General Appearance ED: well developed HEENT Reports normocephalic and moist mucous membranes HEENT Narrative: There is a occipital scalp abrasion with superficial loss of the epidermis. There is no palpable bony depressions. No significant laceration to be repaired. Neck is generally tender to palpation over the musculature but not in the midline. Eyes PERRL and EOMs intact bilaterally Neck full ROM, no lymphadenopathy, supple and no JVD Chest Wall Chest Narrative: Patient has tenderness to palpation over the mid right posterior ribs. No palpable bony crepitance no subcutaneous emphysema. Resp normal respiratory effort and clear to auscultation bilaterally Cardio regular rate, regular rhythm and no murmurs GI normal to inspection, nondistended, normoactive bowel sounds and non-tender Palpation: soft Back/Spine no CVA tenderness and normal ROM Extremity normal to inspection General Extremety ED: Negative for edema General Extremity: Negative for edema Neuro oriented x3 and CN's II-XII intact bilaterally Sensorium / Orientation: alert Motor Exam: strength 5/5 throughout Psych mental status grossly normal Mood & Affect: Negative for depressed or tearful Skin no rashes or lesions noted and no wounds MDM MDM MDM Narrative Medical decision making narrative: Differential diagnosis includes skull fracture intracranial hemorrhage hematoma cervical spine fracture rib fracture pneumothorax hemothorax pleural effusion bone marrow disorders CLL). White count returns at 45.3 and again the patient notes no known history of leukocytosis or blood disorders. Hemoglobin 13.5 platelet count is 276. Coags are normal. BMP shows a potassium of 3.1 creatinine 1.[address] of the brain demonstrates a small hematoma and frontal lobe contusion. CT of the cervical spine does not demonstrate an acute fracture degenerative changes noted. CT of the chest demonstrates no pneumothorax pulmonary contusion or large hemothorax/pleural effusion. No obvious rib fracture was seen. I discussed the case with the patient. He would like to be transferred to [facility]. I have spoken with their emergency department and critical care transfer line and they will be accepting. History & Record Review Discussion w/independent historian: Patient and Significant other Additional record(s) reviewed:: Prior labs Lab Data Attestation: I reviewed the patient's lab results. Labs: Laboratory Results - last 24 hr 02/22/24 02:28 WBC 45.3 H* RBC 4.58 L Hgb 13.5 Hct 42.4 MCV 92.6 MCH 29.5 MCHC 31.8 L RDW Std Deviation 44.7 H RDW Coeff of Tita 13.2 Plt Count 276 MPV 10.4 Immature Gran % (Auto) 0.500 Neut % (Auto) 26.0 L Lymph % (Auto) 69.2 H [place] % (Auto) 3.8 Eos % (Auto) 0.4 Baso % (Auto) 0.1 Absolute Neuts (auto) 11.8 H Absolute Lymphs (auto) 31.36 H Nucleated RBC % 0.1 Differential Comment SCANNED Diff Path Review May foll Atypical Lymphocytes 2+ Smudge Cells RARE PT 13.0 INR 1.0 APTT 25.5 Sodium 135 L Potassium 3.1 L Chloride 99 Carbon Dioxide 25.0 Anion Gap 11 BUN 16 Creatinine 1.22 Estim Creat Clear Calc 57.27 Est GFR (MDRD) Af Amer 73 Est GFR (MDRD) Non-Af 61 BUN/Creatinine Ratio 13.1 Glucose 179 H Calcium 8.9 Radiography Diagnostic Testing: Clinical Impression(s) from Imaging Studies Brain CT 02/22/24 01:30 IMPRESSION: 1. Soft tissue swelling of the posterior mid occipital region with no underlying skull fracture but with small left medial frontal lobe cortical contusion and small left parafalcine subdural hemorrhage. 2. Mild bilateral periventricular and subcortical white matter chronic small vessel disease with age appropriate cerebral atrophy. Electronically Signed: Henok Farnsworth MD at 2:41 EDT , ADDENDUM: 02/22/24 0253 IMPRESSION: 1. Soft tissue swelling of the posterior mid occipital region with no underlying skull fracture but with small left medial frontal lobe cortical contusion and small left parafalcine subdural hemorrhage. 2. Mild bilateral periventricular and subcortical white matter chronic small vessel disease with age appropriate cerebral atrophy. N.B. : The above Results were Read Back by Henok Farnsworth MD to Ramirez Trotter DO, and understanding confirmed on 02/22/2024 02:47:31 (ET). Electronically Signed: Henok Farnsworth MD at 2:41 EDT , Cervical Spine CT 02/22/24 01:30 IMPRESSION: 1. No acute abnormality of the cervical spine 2. 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 3. Capacious, food debris filled proximal esophagus. Electronically Signed: Henok Farnsworth MD at 2:56 EDT , Discharge Plan Triage Chief Complaint: Head Injury ED Provider: Ramirez Trotter Dx/Rx/DC Orders Clinical Impression: Leukocytosis, Subdural hematoma, Contusion of frontal lobe, Fall, Contusion of rib on right side Prescriptions: No Action losartan-hydrochlorothiazide [Hyzaar] 1 EACH tablet 1 tab PO DAILY Patient Comments: high blood pressure ascorbic acid (vitamin C) [Vitamin C] 500 MG tablet extended release 500 mg PO DAILY psyllium husk (with sugar) [Metamucil (with sugar)] 575 GM powder 575 g PO BID acetaminophen 500 MG tablet 1,000 mg PO Q8 0RF morphine 15 MG tablet 15 mg PO BID 7 Days Qty: 14 0RF oxycodone 5 MG tablet 5 - 10 mg PO Q4H PRN PRN (Reason: Mod-Severe Pain (4-04/10)) 7 Days Qty: 56 0RF rosuvastatin 10 mg tablet 10 mg PO QHS Primary Care Provider: Misa Cabrera Referrals: Misa Cabrera MD [Primary Care Provider] - Print Language: [place] Disposition Disposition: Acute Care Hospital Discharge Location: [facility]
[2024-02-22] MEDS: Diphth,Pertuss(Acell),Tet Vac 0.5 ML Vial IM (01:40)
[2024-02-22] MEDS: oxyCODONE 5 MG Tablet 10 MG PO (01:40)
[2024-02-22 02:32] VITALS: BP 165/83; PULSE 74; RESP 18; O2SAT 95
[2024-02-22 02:34] LABS: Absolute Lymphocyte Count 31.36 X10^3/uL (0.83-4.51); Absolute Neutrophil Count 11.8 X10^3/uL (2.0-7.7); Basophil# 0.06 X10^3/uL; Basophil% 0.1 % (0-1); Eosinophils% 0.4 % (0-5); Hematocrit 42.4 % (40-54); Hemoglobin 13.5 g/dL (13.0-16.5); Lymphocyte # 31.36 X10^3/ul (0.83-4.51); Lymphocyte % 69.2 % (19-41); Mean Corp Hgb Conc 31.8 g/dL (32-36); Mean Corpuscular Hgb 29.5 pg (27.0-32.0); Mean Corpuscular Volume 92.6 fL (80-94); Mean Platelet Vol. 10.4 fl (6.2-12.0); Monocyte# 1.73 X10^3/uL; Monocyte% 3.8 % (0-10); NRBC Flagged by Analyzer 0.1 % (0-5); Neutrophil # 11.76 X10^3/uL (2.7-7.7); POSITIVE COUNT YES; POSITIVE DIFFERENTIAL YES; POSITIVE MORPHOLOGY YES; Platelet Count 276 K/mm3 (150-450); RBC Distribution Width CV 13.2 % (11.6-14.6); RBC Distribution Width SD 44.7 fl (35.1-43.9); Red Blood Count 4.58 M/mm3 (4.6-6.2)
[2024-02-22 02:40] LABS: Differential Indicated SCAN CRITERIA MET; White Blood Count 45.3 K/mm3 (4.4-11.0)
[2024-02-22 02:49] LABS: Partial Thromboplast Time 25.5 Seconds (24.1-36.2)
[2024-02-22 02:54] LABS: Anion Gap 11 (5-15); BUN 16 mg/dL (7-18); BUN/Creat Ratio 13.1 RATIO (10-20); Calcium,Total 8.9 mg/dL (8.5-10.1); Chloride 99 mmol/L (98-107); Creatinine, Serum 1.22 mg/dL (0.70-1.30); EST Glomerular Filtration Rate 61 mL/min (>60); Est Glom Filt Rate - Afr Amer 73 mL/min (>60); Estimated Creatinine Clearance 57.27 ml/min; Glucose 179 mg/dL (74-106); Potassium 3.1 mmol/L (3.5-5.1); Sodium Level 135 mmol/L (136-145)
[2024-02-22 03:13] LABS: Atypical Lymphocyte 2+ %; Differential Comment SCANNED; Smudge Cells RARE
[2024-02-22 03:32] VITALS: BP 158/76; PULSE 70; RESP 18; O2SAT 95
[2024-02-22 03:56] VITALS: BP 158/76; PULSE 71; RESP 16; TEMP 36.7; O2SAT 95
[2024-02-22 12:12] LABS: Pathologist Review Reviewed
== END 2024-02-22 04:18 | disposition short-term general hospital (02) ==
PROVIDERS: Emergency Provider Emergency Medicine; PCP Family Medicine; Visit Provider Emergency Medicine
DX: D72.829 Elevated white blood cell count, unspecified (principal); S06.5XAA Traumatic subdural hemorrhage with loss of consciousness status unknown, initial encounter; S20.211A Contusion of right front wall of thorax, initial encounter; E78.5 Hyperlipidemia, unspecified; Z79.899 Other long term (current) drug therapy; W19.XXXA Unspecified fall, initial encounter; Z87.891 Personal history of nicotine dependence
CPT/HCPCS: 70450; 71250; 72125; 80048; 85025; 85610; 85730; 90715; 99284; A4216

== ENCOUNTER 2024-07-30 11:00 | Outpatient (RCR) | payer MEDICARE, SELFPAY ==
--- NOTE | 2024-07-01 09:41 | HP.PTEVAL ---
Patient's Visit Information Visit Information Visit Information: MISA ADAMS is a 79 year old M referred to Physical Therapy by ADAN BERG with a diagnosis of thoracic vertebral fracture. Date of Evaluation: 06/27/24 Physical Therapist: Ryder Sheikh DPT Visit Plan Frequency: 1x/Week Duration: 6 Weeks Plan: 1) postural strengthening of mid trap, rhomboids, UT. 2) cervical ROM exercises, especially into rotation and extension 3) progress HEP for above Subjective Subjective: Pt. is here today for his initial evaluation with diagnosis of a 9th thoracic vertebral fracture, but patient reports he has surgery on February 21. Pt. reports having 2 rods placed and screws to stabilize his spine.? He reports falling backwards causing all of his issues. Pt. reports no falls since. Pt. saw physician on Jun 19 and was pleased with his progress. Pt. was initially on a lifting restriction, but is no longer on one. Pt. reports difficulty sleeping. He does have some discomfort in AMs, but does better as he walks. Pt. is also having increased cervical stiffness, but reports this has been present for years. Pt. is hopeful to increase his strength in order to complete all IADLs with better tolerance and to increase his cervical ROM in order to do better with looking over is shoulders. Pain Thoracic spine: Pain Intensity (Out of 10): 1 Pain Intensity Range: 0 and 1 Objective Objective: POSTURE: Pt. has increased FH and rounded shoulders. Difficult for patient to correct PALPATION: Pt. has tenderness at thoracic erector spinae and cervical erector spinae. NEURO: Normal ROM: CERVICAL SPINE: flexion min loss, ext max loss, SB mod loss bilat, rotation mod loss bilat. No boubacar with all motions, but very stiff, Thoracic spineL very stiff throughout. MMT: Pt. has 4+/5 B shoulder strength throughout. GAIT: Pt. has fairly normal gait pattern. Balance/Special Test Scores Oswestry Low Back Score: 11 Goals Goal 1:: LTG: Pt. to be I with HEP. Goal Time Frame: 4-6 Weeks Goal 2:: LTG: Pt. to complete ADLs with good tolerance, ie washing dishes and cooking without needing rest periods. Goal Time Frame: 4-6 Weeks Goal 3:: LTG: Pt. to have increased rhomboid and mid trap strength to 5/5 throughout. Goal Time Frame: 4-6 Weeks Goal 4:: LTG: Pt. to have increased cervical rotation and extension to min/mod loss in order to increase ability to look up and over shoulders. Goal Time Frame: 4-6 Weeks Rehabilitation Potential Physical Therapy Diagnosis: Pt. has signs and symptoms consistent with thoracic vertebral fracture with subsequent surgery. Pt. has marked limited ROM and some postural weakness. He also has some marked cervical hypomobility. Pt. would benefit from PT to increase postural stability in order to complete all ADLs with good tolerance. Rehabilitation Potential: Excellent Anticipated Interventions Patient/Client Instruction: Educate patient on: Condition, Plan of Care, Risk Factors and Benefits of Fitness Program For the Purpose of:: To decrease pain, To increase ROM, To improve nutrient delivery to tissue and To increase oxygenation perfusion Therapeutic Exercise to Include: Strength training, Power training, Postural training and Flexibilty training For the Purpose of:: To decrease pain, To decrease swelling/inflammation, To improve nutrient delivery to tissue, To increase oxygenation perfusion, To improve ability to perform ADL's, To increase tolerance to activity/condition/position and To decrease level of supervision to perform tasks Text: Thank you for the opportunity to evaluate your patient. For Medicare and Medicare HMO plans, please review the plan of care and approve it. It will need to be FAXED BACK to us at [phone] for Medicare purposes. For Medicare only, by signing this I certify the plan of care. Please let me know if there are questions or concerns regarding this plan of care. Physician Signature: Date:
== END 2024-07-30 19:00 | disposition home or self-care (01) ==
LOC: PT 11:00
PROVIDERS: PCP Family Medicine
DX: S22.079S Unspecified fracture of T9-T10 vertebra, sequela (principal)
CPT/HCPCS: 97110; 97161; 97530

== ENCOUNTER → 2024-09-30 | Outpatient (CLI) | payer MEDICARE, SELFPAY ==
[2024-09-30 21:21] LABS: Protein, Urine (Random) 23.5 mg/dL (0.0-12.0); Protein:Creat Ratio 373 mg/g CRE (0-200)
[2024-09-30 21:34] LABS: Hemoglobin A1c 7.1 % (<=5.6)
[2024-09-30 21:37] LABS: AST(SGOT) 26 U/L (<=37); Alanine Aminotransfer ALT/SGPT 19 U/L (<=46); Anion Gap 16 (5-15); BUN 13 mg/dL (4-19); BUN/Creat Ratio 13.3 RATIO (10-20); Calcium,Total 9.5 mg/dL (7.6-11.0); Carbon Dioxide 21.5 mmol/L (21.0-32.0); Chloride 99 mmol/L (98-108); Cholesterol 196 mg/dL (<=200); Creatinine, Serum 0.99 mg/dL (0.70-1.20); EST Glomerular Filtration Rate 77 (>60); Glucose 222 mg/dL (70-99); High Density Lipoprotein 61 mg/dL; Low Density Lipoprotein Calc. 107 mg/dL; Potassium 3.6 mmol/L (3.3-5.1); Sodium Level 136 mmol/L (133-145); Triglycerides 139 mg/dL; Very Low Density Lipoprotein 28 mg/dL (5-40); cholesterol:hdl ratio screen 3.21
== END | disposition home or self-care (01) ==
LOC: MTLAB 16:06
PROVIDERS: PCP Family Medicine; Referring Provider Family Medicine; Visit Provider Family Medicine
DX: E11.69 Type 2 diabetes mellitus with other specified complication (principal); E11.59 Type 2 diabetes mellitus with other circulatory complications
CPT/HCPCS: 36415; 80048; 80061; 82570; 83036; 84156; 84443; 84450; 84460

== ENCOUNTER → 2025-03-27 | Outpatient (CLI) | payer MEDICARE, SELFPAY ==
[2025-03-27 10:42] LABS: AST(SGOT) 26 U/L (<=37); Alanine Aminotransfer ALT/SGPT 22 U/L (<=46); Albumin, Serum 4.3 g/dL (3.4-4.8); Alkaline Phosphatase 54 U/L (40-129); Anion Gap 14 (5-15); BUN 12 mg/dL (4-19); BUN/Creat Ratio 12.5 RATIO (10-20); Calcium,Total 9.2 mg/dL (7.6-11.0); Carbon Dioxide 22.6 mmol/L (21.0-32.0); Chloride 100 mmol/L (98-108); Cholesterol 198 mg/dL (<=200); Globulin 2.8 g/dL (2.2-4.2); Glucose 132 mg/dL (70-99); Low Density Lipoprotein Calc. 122 mg/dL; Potassium 3.7 mmol/L (3.3-5.1); Triglycerides 99 mg/dL; Very Low Density Lipoprotein 20 mg/dL (5-40); cholesterol:hdl ratio screen 3.55
[2025-03-27 11:35] LABS: Creatinine, Urine (random) 143.00 mg/dL (39.00-259.00); Microalbumin,Random Urine 60.5 mg/L (<20 mg/L)
== END | disposition home or self-care (01) ==
LOC: MTLAB 08:11
PROVIDERS: PCP Family Medicine; Referring Provider Family Medicine; Visit Provider Family Medicine
DX: E11.59 Type 2 diabetes mellitus with other circulatory complications (principal)
CPT/HCPCS: 36415; 80053; 80061; 82043; 82570; 83036